=== PATIENT | male | born 1965 | race Hispanic/Latino ===

== ENCOUNTER 2024-12-02 15:41 | Emergency (ER) | payer BC ==
[~2024-12-02] VITALS: Ht 170.2 cm; Wt 120.2 kg
--- NOTE | 2024-12-02 15:50 | ERN ---
General Chief Complaint: Weakness Stated Complaint: DIZZINESS AND WEAKNESS Time Seen by MD: 15:43 History of Present Illness Initial Comments 59-year-old male brought in by EMS for episode of dizziness. Patient reports that he was walking, felt an episode of dizziness. No focal neurologic deficits no chest pain. Symptoms have since resolved. Patient was stable vital signs per EMS. Normal glucose. Patient reports using cocaine earlier today. Denies any chest pain or palpitations. Denies any recent systemic symptoms such as fevers or body aches or signs of infection. ROS Dictation CONSTITUTIONAL: No chills, no fever, no weakness, no diaphoresis, no malaise. HEAD/FACE: No signs of trauma. EENT: No eye pain, no blurred vision, no tearing, no double vision, no ear pain, no ear discharge, no nose pain, no nasal congestion, no throat pain, no throat swelling, no mouth pain. RESPIRATORY: No cough, no orthopnea, no SOB, no stridor, no wheezing. CARDIOVASCULAR: No chest pain, no edema, no palpitations, no syncope. GASTROINTESTINAL/ABDOMINAL: No abdominal pain, no constipation, no diarrhea, no nausea, no vomiting. GENITOURINARY: No abnormal discharge, no dysuria, no frequent urination, no hematuria. No complaints of pain in the genitals. MUSCULOSKELETAL: No back pain, no gout, no joint pain, no joint swelling, no muscle pain, no muscle stiffness, no neck pain. INTEGUMENTARY: No change in color, no change in hair/nails, no dryness, no lesion, no lumps, no rash. NEUROLOGICAL/PSYCH: Dizzy HEMATOLOGIC/LYMPHATIC: Not anemic, no history of blood clots, no apparent bleeding, no bruising, glands not swollen. All Systems Negative, Except as Noted. Physical Exam Physical Exam Dictation VITAL SIGNS: Reviewed. GENERAL APPEARANCE: Alert, oriented x3, no acute distress. HEAD AND FACE: Non-traumatic. EYES: PERRL, pink conjunctivas, eyelid no trauma, anterior chamber clear. EARS: Pinnas intact and no signs of trauma or erythema. Ear canals clear and no discharge. TMs no erythema. NOSE: No discharge, no bleeding. OROPHARYNX: Mouth normal, teeth no caries, tongue pink. Pharynx clear, no erythema. Tonsils no exudates, no abscesses noted. Mucous membrane moist. NECK: Supple, non-tender, no thyromegaly, no masses, no JVD, no bruits. BREAST: Deferred. CHEST: No tenderness, no crepitus, no paradoxical movement, no retractions. LUNGS: Clear, well-ventilated, symmetric, no rales, no wheezing, no rhonchi, no stridor, good breath sounds bilaterally. HEART: Regular rate, regular rhythm, no murmur, no gallops. VASCULAR: No peripheral edema. ABDOMEN: Soft, positive bowel sounds, nondistended, no guarding, nontender, no rebound, no masses no hepatomegaly, no splenomegaly, no Cha's sign, no hernias. RECTAL: Deferred. GENITAL: Deferred. NEUROLOGICAL: Normal speech, gross motor function intact, gross sensory function intact. MUSCULOSKELETAL: Neck nontender, full range of motion, back nontender, full range of motion. EXTREMITIES: Nontender, full range of motion. SKIN: Color pink, dry, no turgor, no rash, no lacerations, no abrasions, no contusions. LYMPHATICS: Deferred. Results Laboratory and Microbiology Lab and Micro Result Laboratory Tests Test 12/02/24 16:04 White Blood Count 8.1 K/uL (4.8-10.8) Red Blood Count 4.30 MIL/uL (4.50-6.20) L Hemoglobin 13.4 g/dL (14.0-18.0) L Hematocrit 39.4 % (42-54) L Mean Corpuscular Volume 91.6 fL (79-99) Mean Corpuscular Hemoglobin 31.2 pg (27.0-33.0) Mean Corpuscular Hemoglobin Concent 34.0 g/dL (32.0-36.0) Red Cell Distribution Width 13.1 % (11.0-15.5) Platelet Count 162 K/uL (130-400) Mean Platelet Volume 9.2 fL (7.5-10.5) Immature Granulocyte % (Auto) 0.6 % (0-1) Neutrophils (%) (Auto) 70.5 % (40.0-77.0) Lymphocytes (%) (Auto) 17.5 % (21.0-51.0) L Monocytes (%) (Auto) 7.9 % (3.0-13.0) Eosinophils (%) (Auto) 3.3 % (0.0-8.0) Basophils (%) (Auto) 0.2 % (0.0-5.0) Neutrophils # (Auto) 5.7 K/uL (1.8-7.7) Lymphocytes # (Auto) 1.4 K/uL (1.0-4.8) Monocytes # (Auto) 0.6 K/uL (0.1-1.0) Eosinophils # (Auto) 0.27 K/uL (0.00-0.70) Basophils # (Auto) 0.02 K/uL (0.00-0.20) Absolute Immature Granulocyte (auto 0.05 K/uL (0-1) Nucleated Red Blood Cells 0.0 % (0.0-0.19) Sodium Level 142 mmol/L (136-145) Potassium Level 3.9 mmol/L (3.5-5.1) Chloride Level 105 mmol/L (101-111) Carbon Dioxide Level 28 mmol/L (21-32) Blood Urea Nitrogen 28 mg/dL (7-18) H Creatinine 1.8 mg/dL (0.5-1.3) H Glomerular Filtration Rate Calc 43 mL/min (>90) Random Glucose 140 mg/dL (70-105) H Total Calcium 8.6 mg/dL (8.5-10.1) Total Creatine Kinase 343 U/L (21-232) H Troponin I High Sensitivity 17 ng/L (4-75) B-Type Natriuretic Peptide 27 pg/mL (0-100) MDM CC: Episode of dizziness Historian: Patient Comorbidities: Hypertension, cocaine use limitations by social determinants of health: None Differential diagnosis: ACS, drug side effect, dizziness, hypotension, dehydration, electrolyte abnormality, other EKG: Sinus rhythm, rate 69, left axis deviation, early R-wave progression, intervals Labs (independently ordered and interpreted by me ): No leukocytosis, no anemia. Chemistry panel Shows mild elevation of the creatinine 1.8, consistent with CKD. This CK, troponin, and BNP are unremarkable. CXR ( independently interpreted by me ): No cardiomegaly pleural effusions or focal infiltrate. No concerning findings on the workup today. I suspect it is due to cocaine use. Troponin is normal EKG is normal. No signs of cardiac disease at this time. Patient was at baseline. We will DC to PCP ED Course Orders Procedure Category Date Status Time Cbc With Differential LAB 12/02/24 Complete 15:48 B-Type Natriuretic LAB 12/02/24 Complete Peptide 15:48 Chest 1vw RAD 12/02/24 Resulted 15:48 12 Lead Ekg Tracing- EKG 12/02/24 Complete Technical 15:48 Creatine Kinase, Total LAB 12/02/24 Complete 15:48 Troponin I High LAB 12/02/24 Complete Sensitivity 15:48 Basic Metabolic Panel LAB 12/02/24 Complete 15:48 Troponin I High LAB 12/02/24 In Process Sensitivity 16:58 Vital Signs Date Time Temp Pulse Resp B/P (MAP) Pulse Ox O2 Delivery O2 Flow Rate FiO2 12/02/24 17:18 98.1 82 16 125/62 97 Room Air* 0 21 12/02/24 15:43 97.7 74 16 125/62 99 Room Air 0 DX & DISP Disposition: Discharge Departure Impression: Primary Impression: Dizziness Additional Impression: CKD (chronic kidney disease) Condition: Stable Additional Instructions: Your workup is unremarkable today. You EKGs stable. Your blood work is stable. Your chest x-ray is normal. Be sure to drink plenty of liquids. Avoid recreational drug use. Please follow up with the primary doctor as needed. Referrals: SELF,REFERRAL (PCP) GERALDINE PORRAS DO Dec 02, 2024 15:50
--- NOTE | 2024-12-02 16:23 | EKG ---
[facility] Test Date: 2024-12-02 Test Time: 16:20:43 Pat Name: BENNETT JACOBSON Department: ED Room: Gender: Male [employer]er: [id number] : 1965 Requested By: GERALDINE PORRAS Order Number: [id number] Reading MD: Measurements Intervals [place] Rate: 69 P: -19 SD: 200 QRS: -63 QRSD: 106 T: 12 QT: 432 QTc: 465 Interpretive Statements Sinus rhythm Inferior infarct, old Please click the below link to view image of tracing.
[2024-12-02 16:29] LABS: BASOPHILS # (AUTO) 0.02 K/uL (0.00-0.20); BASOPHILS % (AUTO) 0.2 % (0.0-5.0); EOSINOPHILS # (AUTO) 0.27 K/uL (0.00-0.70); EOSINOPHILS % (AUTO) 3.3 % (0.0-8.0); HEMATOCRIT 39.4 % (42-54); IMMATURE GRANULOCYTE ABSOLUTE 0.05 K/uL (0-1); LYMPHOCYTES # (AUTO) 1.4 K/uL (1.0-4.8); LYMPHOCYTES % (AUTO) 17.5 % (21.0-51.0); MEAN CORPUSCULAR HEMOGLOBIN 31.2 pg (27.0-33.0); MEAN CORPUSCULAR VOLUME 91.6 fL (79-99); MONOCYTES # (AUTO) 0.6 K/uL (0.1-1.0); MONOCYTES % (AUTO) 7.9 % (3.0-13.0); NEUTROPHILS # (AUTO) 5.7 K/uL (1.8-7.7); NEUTROPHILS % (AUTO) 70.5 % (40.0-77.0); PLATELET COUNT (AUTO) 162 K/uL (130-400); RED CELL DISTRIBUTION WIDTH 13.1 % (11.0-15.5); WHITE BLOOD COUNT (AUTO) 8.1 K/uL (4.8-10.8)
[2024-12-02 16:37] LABS: CREATININE 1.8 mg/dL (0.5-1.3); POTASSIUM 3.9 mmol/L (3.5-5.1)
--- NOTE | 2024-12-02 16:51 | HMCIMG ---
CHEST 1VW HISTORY: Chest pain COMPARISON: None FINDINGS: A frontal projection of the chest was obtained. No acute pulmonary infiltrates is seen. The heart is borderline enlarged. Prominent interstitial markings are seen. Degenerative changes are seen. IMPRESSION: 1. No acute pulmonary infiltrate is seen.
[2024-12-02 16:53] LABS: B-TYPE NATRIURETIC PEPTIDE 27 pg/mL (0-100)
[2024-12-02 17:18] VITALS: BP 125/62; PULSE 82; RESP 16; TEMP 98.1; O2SAT 97
== END 2024-12-02 18:28 | disposition home or self-care (01) ==
LOC: EDH 15:41
DX: R42 Dizziness and giddiness (principal); I12.9 Hypertensive chronic kidney disease with stage 1 through stage 4 chronic kidney disease, or unspecified chronic kidney disease; N18.9 Chronic kidney disease, unspecified
CPT/HCPCS: 36415; 71045; 80048; 82550; 83880; 84484; 85025; 93005; 99284